=== PATIENT | female | born 1985 | race Caucasian/White ===

== ENCOUNTER 2019-06-20 11:41 | Inpatient (IN) | payer MEDICAID ==
[~2019-06-20] VITALS: Ht 154.9 cm; Wt 50.6 kg
[2019-06-20] MEDS ORDERED: HYDROCODONE/ACETAMINOPHEN 5-325 MG TABLET PO ONE (12:30)
[2019-06-20] MEDS ORDERED: 0.9% SODIUM CHLORIDE 10 ML SYRINGE IVP PRN (16:15)
[2019-06-20] MEDS ORDERED: DEXTROSE 5%-0.45% SODIUM CHL 1,000 ML IV ONE (16:15)
[2019-06-20] MEDS ORDERED: ACETAMINOPHEN 325 MG TABLET PO PRN (16:15)
[2019-06-20] MEDS ORDERED: ONDANSETRON HCL 4 MG/2 ML VIAL IVP PRN ×2 (16:15)
[2019-06-20] MEDS ORDERED: BISACODYL 10 MG RECTAL RECTAL SUPPOSITORY PR PRN (16:15)
[2019-06-20 16:39] LABS: BASOPHILS % (AUTO) 0.4 % (0.0-2.0); EOSINOPHILS % (AUTO) 0.3 % (1.0-6.0); HEMATOCRIT 39.1 % (36-46); HEMOGLOBIN 13.3 g/dL (12.0-16.0); LYMPHOCYTES # (AUTO) 1.3 K/uL (1.0-4.8); LYMPHOCYTES % (AUTO) 12.4 % (22.0-44.0); MEAN CORPUSCULAR HEMOGLOBIN 30.6 pg (26.0-34.0); MEAN CORPUSCULAR HGB CONC 34.1 G/dL (31.0-37.0); MEAN CORPUSCULAR VOLUME 90 fL (80-100); MONOCYTES # (AUTO) 0.8 K/uL (0.1-1.0); MONOCYTES % (AUTO) 7.1 % (2.0-9.0); NEUTROPHILS # (AUTO) 8.5 K/uL (1.8-7.7); NEUTROPHILS % (AUTO) 79.8 % (40.0-70.0); PLATELET COUNT (AUTO) 199 K/uL (150-450); RED BLOOD CELL COUNT(AUTO) 4.35 MIL/uL (4.00-5.20); RED CELL DISTRIBUTION WIDTH 13.1 % (11.5-14.5)
[2019-06-20 16:59] LABS: ANION GAP 16 mmol/L (8-16); CALCIUM, TOTAL 8.2 mg/dL (8.8-10.5); CARBON DIOXIDE 20 mmol/L (22-29); CHLORIDE 103 mmol/L (98-107); GLOMERULAR FILTR. RATE CALC > 60 mL/min (>60); GLUCOSE,RANDOM 98 mg/dL (70-110); POTASSIUM 3.8 mmol/L (3.5-5.1); SODIUM SERUM 139 mmol/L (136-145); UREA NITROGEN, BLOOD 26 mg/dL (7-18)
[2019-06-20] MEDS ORDERED: RINGERS SOLUTION,LACTATED 500 ML IV ONE (17:00)
[2019-06-20 17:13] LABS: BILIRUBIN,TOTAL 0.4 mg/dL (0.1-1.0)
[2019-06-20 17:14] LABS: ALANINE AMINOTRANSFERASE 37 U/L (12-78); ALBUMIN 3.8 g/dL (3.4-5.0); ALKALINE PHOSPHATASE 46 U/L (46-116); ASPARTATE AMINOTRANSFERASE 39 U/L (15-37); FREE T4 (FREE THYROXINE) 1.65 ng/dL (0.76-1.46); THYROID STIMULATING HORMONE 0.14 uIU/mL (0.36-3.74)
[2019-06-20 17:22] VITALS: BP 112/66
[2019-06-20] MEDS: MORPHINE SULFATE 4 MG/ML SYRINGE IVP PRN ×2 (17:59→22:29)
[2019-06-20 20:15] VITALS: BP 119/78
[2019-06-20] MEDS: DOCUSATE SODIUM 100 MG CAPSULE PO SCH (20:45)
[2019-06-20] MEDS: ACETAMINOPHEN 325 MG TABLET PO PRN (20:45)
[2019-06-21 00:14] VITALS: BP 119/68
[2019-06-21] MEDS ORDERED: RINGERS SOLUTION,LACTATED 1,000 ML IV ONE ×3 (03:33→20:32)
[2019-06-21] MEDS: MORPHINE SULFATE 4 MG/ML SYRINGE IVP PRN ×3 (04:09→13:42)
[2019-06-21 04:12] VITALS: BP 118/76
[2019-06-21 07:55] VITALS: BP 140/71
[2019-06-21] MEDS: DOCUSATE SODIUM 100 MG CAPSULE PO SCH ×2 (09:00→20:14)
[2019-06-21] MEDS: FAMOTIDINE 20 MG TABLET PO SCH (09:00)
[2019-06-21] MEDS: MULTIVITAMINS WITH MINERALS, THERAPEUTIC TABLET PO SCH (09:00)
[2019-06-21 11:40] VITALS: BP 108/80
[2019-06-21] MEDS ORDERED: VANCOMYCIN HCL 1 GM/D5% WATER 200 ML IV ONE ×2 (13:00→23:00)
[2019-06-21] MEDS ORDERED: LIDOCAINE 1%/EPI 1:200,000/PF 30 ML VIAL ONE (14:02)
[2019-06-21] MEDS ORDERED: BACITRACIN 28.4 GM OINTMENT TP ONE (14:02)
[2019-06-21] MEDS ORDERED: BUPIVACAINE HCL/PF 0.5% 30 ML VIAL ONE (14:02)
[2019-06-21 15:45] VITALS: BP 127/78
[2019-06-21] MEDS ORDERED: MEPERIDINE-PF 25 MG/ML VIAL IVP PRN (20:15)
[2019-06-21] MEDS ORDERED: HYDROmorphone 2 MG/ML SYRINGE IVP PRN (20:15)
[2019-06-21] MEDS ORDERED: FentaNYL CITRATE-PF 100 MCG/2 ML VIAL IVP PRN (20:15)
[2019-06-21] MEDS: CYCLOBENZAPRINE HCL 10 MG TABLET PO SCH (21:00)
[2019-06-21] MEDS ORDERED: BISACODYL 10 MG RECTAL RECTAL SUPPOSITORY PR PRN (22:30)
[2019-06-21] MEDS ORDERED: VANCOMYCIN HCL 1 GM/D5% WATER 200 ML IV SCH (22:30)
[2019-06-21] MEDS ORDERED: ACETAMINOPHEN 325 MG TABLET PO PRN (22:30)
[2019-06-21 23:29] LABS: BASOPHILS % (AUTO) 0.3 % (0.0-2.0); EOSINOPHILS % (AUTO) 0.3 % (1.0-6.0); HEMATOCRIT 33.7 % (36-46); HEMOGLOBIN 11.5 g/dL (12.0-16.0); LYMPHOCYTES # (AUTO) 0.6 K/uL (1.0-4.8); LYMPHOCYTES % (AUTO) 6.6 % (22.0-44.0); MEAN CORPUSCULAR HEMOGLOBIN 30.6 pg (26.0-34.0); MEAN CORPUSCULAR HGB CONC 34.1 G/dL (31.0-37.0); MEAN CORPUSCULAR VOLUME 90 fL (80-100); MONOCYTES # (AUTO) 0.2 K/uL (0.1-1.0); MONOCYTES % (AUTO) 2.2 % (2.0-9.0); NEUTROPHILS # (AUTO) 8.5 K/uL (1.8-7.7); NEUTROPHILS % (AUTO) 90.6 % (40.0-70.0); PLATELET COUNT (AUTO) 172 K/uL (150-450); RED BLOOD CELL COUNT(AUTO) 3.76 MIL/uL (4.00-5.20); RED CELL DISTRIBUTION WIDTH 12.6 % (11.5-14.5)
[2019-06-21 23:31] VITALS: BP 132/71
[2019-06-22] MEDS: MORPHINE SULFATE 4 MG/ML SYRINGE IVP PRN ×2 (01:11→21:45)
[2019-06-22 04:42] VITALS: BP 114/74
[2019-06-22] MEDS ORDERED: DEXAMETHASONE SOD PHOS 4 MG/ML VIAL IVP ONE (05:43)
[2019-06-22] MEDS ORDERED: LIDOCAINE/PF 2% 5 ML VIAL IM ONE (05:43)
[2019-06-22] MEDS ORDERED: ROCURONIUM BROMIDE 10 MG/ML 5 ML VIAL IVP ONE (05:43)
[2019-06-22] MEDS ORDERED: PROPOFOL 1% 20 ML VIAL IVP ONE (05:43)
[2019-06-22] MEDS ORDERED: ONDANSETRON HCL 4 MG/2 ML VIAL IVP ONE (05:43)
[2019-06-22] MEDS ORDERED: METOCLOPRAMIDE HCL 5 MG/ML 2 ML VIAL IVP ONE (05:43)
[2019-06-22 05:59] LABS: BASOPHILS % (AUTO) 0.2 % (0.0-2.0); EOSINOPHILS % (AUTO) 0 % (1.0-6.0); HEMATOCRIT 34.5 % (36-46); HEMOGLOBIN 12.1 g/dL (12.0-16.0); LYMPHOCYTES # (AUTO) 0.8 K/uL (1.0-4.8); LYMPHOCYTES % (AUTO) 8.3 % (22.0-44.0); MEAN CORPUSCULAR HEMOGLOBIN 31.1 pg (26.0-34.0); MEAN CORPUSCULAR HGB CONC 35.2 G/dL (31.0-37.0); MEAN CORPUSCULAR VOLUME 88 fL (80-100); MONOCYTES # (AUTO) 0.5 K/uL (0.1-1.0); MONOCYTES % (AUTO) 5.2 % (2.0-9.0); NEUTROPHILS # (AUTO) 7.9 K/uL (1.8-7.7); PLATELET COUNT (AUTO) 204 K/uL (150-450); RED CELL DISTRIBUTION WIDTH 12.6 % (11.5-14.5)
[2019-06-22 06:08] LABS: ANION GAP 11 mmol/L (8-16); CARBON DIOXIDE 26 mmol/L (22-29); CHLORIDE 104 mmol/L (98-107); CREATININE 0.71 mg/dL (0.60-1.30); GLOMERULAR FILTR. RATE CALC > 60 mL/min (>60); GLUCOSE,RANDOM 158 mg/dL (70-110); NEUTROPHILS % (AUTO) 86.3 % (40.0-70.0); POTASSIUM 3.7 mmol/L (3.5-5.1); SODIUM SERUM 141 mmol/L (136-145); UREA NITROGEN, BLOOD 13 mg/dL (7-18)
[2019-06-22] MEDS: VANCOMYCIN HCL 1 GM/D5% WATER 200 ML IV SCH ×2 (06:56→18:36)
[2019-06-22 07:58] VITALS: BP 110/67
[2019-06-22] MEDS: OXYGEN THERAPY IH SCH ×2 (08:00→20:00)
[2019-06-22] MEDS: DOCUSATE SODIUM 100 MG CAPSULE PO SCH ×2 (08:34→20:52)
[2019-06-22] MEDS: FAMOTIDINE 20 MG TABLET PO SCH (08:34)
[2019-06-22] MEDS: MULTIVITAMINS WITH MINERALS, THERAPEUTIC TABLET PO SCH (08:34)
[2019-06-22] MEDS: CYCLOBENZAPRINE HCL 10 MG TABLET PO SCH ×3 (08:35→20:53)
[2019-06-22] MEDS: ENOXAPARIN SODIUM 30 MG/0.3 ML PF SYRINGE SQ SCH (08:35)
[2019-06-22 11:18] VITALS: BP 115/68
[2019-06-22 12:10] LABS: APPEARANCE,URINE CLEAR (CLEAR); BILIRUBIN,URINE NEGATIVE (NEGATIVE); GLUCOSE, URINE (UA) 500 mg/dL (NEGATIVE); KETONES,URINE NEGATIVE (NEGATIVE); LEUKOCYTE ESTERASE ,URINE NEGATIVE (NEGATIVE); NITRATE,URINE NEGATIVE (NEGATIVE); OCCULT BLOOD,URINE SMALL (NEGATIVE); PROTEIN,URINE NEGATIVE (NEGATIVE)
[2019-06-22 12:21] LABS: BACTERIA,URINE None Seen /HPF (None Seen); SQUAMOUS EPITHELIAL CELL,UR Rare /LPF (None Seen); WBC,URINE 0-2 /HPF (0-5)
[2019-06-22 15:31] VITALS: BP 106/65
[2019-06-22 20:46] VITALS: BP 120/67
[2019-06-22] MEDS: ACETAMINOPHEN 325 MG TABLET PO PRN (20:53)
[2019-06-22 23:46] VITALS: BP 101/71
[2019-06-23 05:38] VITALS: BP 111/63
[2019-06-23] MEDS ORDERED: FentaNYL CITRATE-PF 250 MCG/5 ML VIAL IVP ONE (05:38)
[2019-06-23] MEDS ORDERED: MIDAZOLAM HCL 2 MG/2 ML VIAL IVP ONE (05:38)
[2019-06-23] MEDS: LEVOTHYROXINE SODIUM 75 MCG TABLET PO SCH (06:42)
[2019-06-23 06:52] LABS: BASOPHILS % (AUTO) 0.6 % (0.0-2.0); EOSINOPHILS % (AUTO) 2.5 % (1.0-6.0); HEMATOCRIT 33.1 % (36-46); HEMOGLOBIN 11.6 g/dL (12.0-16.0); LYMPHOCYTES # (AUTO) 2.3 K/uL (1.0-4.8); LYMPHOCYTES % (AUTO) 31.6 % (22.0-44.0); MEAN CORPUSCULAR HEMOGLOBIN 31.3 pg (26.0-34.0); MEAN CORPUSCULAR VOLUME 89 fL (80-100); MONOCYTES # (AUTO) 0.8 K/uL (0.1-1.0); MONOCYTES % (AUTO) 10.5 % (2.0-9.0); NEUTROPHILS # (AUTO) 4.1 K/uL (1.8-7.7); NEUTROPHILS % (AUTO) 54.8 % (40.0-70.0); PLATELET COUNT (AUTO) 200 K/uL (150-450); RED BLOOD CELL COUNT(AUTO) 3.71 MIL/uL (4.00-5.20); RED CELL DISTRIBUTION WIDTH 12.8 % (11.5-14.5)
[2019-06-23] MEDS: OXYGEN THERAPY IH SCH (08:00)
[2019-06-23 08:16] VITALS: BP 117/70
[2019-06-23] MEDS: MULTIVITAMINS WITH MINERALS, THERAPEUTIC TABLET PO SCH (08:27)
[2019-06-23] MEDS: FAMOTIDINE 20 MG TABLET PO SCH (08:27)
[2019-06-23] MEDS: MORPHINE SULFATE 4 MG/ML SYRINGE IVP PRN (08:28)
[2019-06-23] MEDS: CYCLOBENZAPRINE HCL 10 MG TABLET PO SCH ×3 (08:28→20:11)
[2019-06-23] MEDS: DOCUSATE SODIUM 100 MG CAPSULE PO SCH ×2 (08:28→20:11)
[2019-06-23] MEDS: ENOXAPARIN SODIUM 30 MG/0.3 ML PF SYRINGE SQ SCH (08:32)
[2019-06-23 12:28] VITALS: BP 106/71
[2019-06-23 16:01] VITALS: BP 113/64
[2019-06-23 21:00] VITALS: BP 101/51
[2019-06-23] MEDS: ACETAMINOPHEN 325 MG TABLET PO PRN (21:12)
[2019-06-24 04:50] VITALS: BP 116/65
[2019-06-24] MEDS: LEVOTHYROXINE SODIUM 75 MCG TABLET PO SCH (06:09)
[2019-06-24 07:48] VITALS: BP 109/70
[2019-06-24] MEDS: MULTIVITAMINS WITH MINERALS, THERAPEUTIC TABLET PO SCH (07:52)
[2019-06-24] MEDS: DOCUSATE SODIUM 100 MG CAPSULE PO SCH ×2 (07:52→20:48)
[2019-06-24] MEDS: ENOXAPARIN SODIUM 30 MG/0.3 ML PF SYRINGE SQ SCH (07:52)
[2019-06-24] MEDS: CYCLOBENZAPRINE HCL 10 MG TABLET PO SCH ×3 (07:53→20:48)
[2019-06-24] MEDS: FAMOTIDINE 20 MG TABLET PO SCH (07:53)
[2019-06-24] MEDS: OxyCODONE HCL/ACETAMINOPHEN 5-325 MG TABLET PO PRN ×4 (07:53→20:48)
[2019-06-24 11:39] VITALS: BP 98/61
[2019-06-24 16:05] VITALS: BP 98/52
[2019-06-24] MEDS: OXYGEN THERAPY IH SCH (20:00)
[2019-06-24 20:27] VITALS: BP 103/60
[2019-06-25 00:26] VITALS: BP 105/58
[2019-06-25 05:27] VITALS: BP 103/57
[2019-06-25] MEDS: LEVOTHYROXINE SODIUM 75 MCG TABLET PO SCH (06:21)
[2019-06-25] MEDS: OxyCODONE HCL/ACETAMINOPHEN 5-325 MG TABLET PO PRN ×3 (06:22→20:08)
[2019-06-25 08:00] VITALS: BP 99/56
[2019-06-25] MEDS: MULTIVITAMINS WITH MINERALS, THERAPEUTIC TABLET PO SCH (08:48)
[2019-06-25] MEDS: DOCUSATE SODIUM 100 MG CAPSULE PO SCH ×2 (08:48→20:08)
[2019-06-25] MEDS: FAMOTIDINE 20 MG TABLET PO SCH (08:48)
[2019-06-25] MEDS: CYCLOBENZAPRINE HCL 10 MG TABLET PO SCH ×3 (08:48→20:07)
[2019-06-25] MEDS: ENOXAPARIN SODIUM 30 MG/0.3 ML PF SYRINGE SQ SCH (08:49)
[2019-06-25 12:04] VITALS: BP 98/52
[2019-06-25 19:32] VITALS: BP 96/63
[2019-06-25 23:01] VITALS: BP 100/60
[2019-06-26] MEDS: LEVOTHYROXINE SODIUM 75 MCG TABLET PO SCH (06:32)
[2019-06-26 07:31] VITALS: BP 92/59
[2019-06-26] MEDS: OxyCODONE HCL/ACETAMINOPHEN 5-325 MG TABLET PO PRN ×2 (08:25→13:24)
[2019-06-26] MEDS: DOCUSATE SODIUM 100 MG CAPSULE PO SCH (09:06)
[2019-06-26] MEDS: FAMOTIDINE 20 MG TABLET PO SCH (09:06)
[2019-06-26] MEDS: MULTIVITAMINS WITH MINERALS, THERAPEUTIC TABLET PO SCH (09:07)
[2019-06-26] MEDS: CYCLOBENZAPRINE HCL 10 MG TABLET PO SCH (09:07)
[2019-06-26] MEDS: ENOXAPARIN SODIUM 30 MG/0.3 ML PF SYRINGE SQ SCH (09:09)
[2019-06-26 11:33] VITALS: BP 120/63
[2019-06-26 15:19] VITALS: BP 116/63
== END 2019-06-26 15:54 | DRG 308 ==
LOC: EMS 11:44 → 4E 16:29
PROVIDERS: ADMIT Internal Medicine; ATTEND Internal Medicine
PROC: 0QS704Z Reposition Left Upper Femur with Internal Fixation Device, Open Approach (ICD-10-PCS; principal; 2019-06-21 16:00)
DX: S72.032A Displaced midcervical fracture of left femur, initial encounter for closed fracture (principal); G81.90 Hemiplegia, unspecified affecting unspecified side; Z89.611 Acquired absence of right leg above knee; E03.9 Hypothyroidism, unspecified; W18.39XA Other fall on same level, initial encounter; Z99.3 Dependence on wheelchair; Z89.511 Acquired absence of right leg below knee; Z85.850 Personal history of malignant neoplasm of thyroid; Y93.89 Activity, other specified; Y92.89 Other specified places as the place of occurrence of the external cause; Y99.8 Other external cause status
CPT/HCPCS: 72170; 73503; 73552; 73700; 83036; 84439; 84443; 86850; 86900; 86901; 86920; 87081; 97110; 97112; 97163; 97167; 97530; 97535; G0238; G0378; J0690; J1100; J1650; J2250; J2270; J2405; J2704; J2765; J3010; J3370; J3490; J7120